=== PATIENT | female | born 1990 ===

== ENCOUNTER 2017-02-22 14:32 | Inpatient (IN) | payer BC, OTHER ==
[2017-02-22] MEDS ORDERED: METHOCARBAMOL 750 MG TABLET PO PRN (19:15)
[2017-02-22] MEDS ORDERED: IBUPROFEN 600 MG TABLET PO PRN (19:15)
[2017-02-22] MEDS ORDERED: MAGNESIUM HYDROXIDE 30 ML LIQUID UDC PO PRN (19:15)
[2017-02-22] MEDS ORDERED: ONDANSETRON 4 MG/2 ML VIAL IM PRN (19:15)
[2017-02-22] MEDS ORDERED: CLONIDINE HCL 0.1 MG TABLET PO PRN (19:15)
[2017-02-22] MEDS ORDERED: LORAZEPAM 2 MG/1 ML VIAL IM PRN (19:15)
[2017-02-22] MEDS ORDERED: LOPERAMIDE HCL 2 MG CAPSULE PO PRN ×2 (19:15)
[2017-02-22] MEDS ORDERED: ACETAMINOPHEN 325 MG TABLET PO PRN (19:15)
[2017-02-22] MEDS ORDERED: diphenhydrAMINE 50 MG CAPSULE PO PRN (19:15)
[2017-02-22] MEDS ORDERED: BUPRENORPHINE HCL 2 MG TAB.SUBL SL PRN (19:15)
[2017-02-22] MEDS ORDERED: LORAZEPAM 1 MG TABLET PO PRN ×2 (19:15)
[2017-02-22] MEDS ORDERED: MIRALAX 17 GM POWD.PACK PO PRN (19:15)
[2017-02-22] MEDS ORDERED: MAG HYDROX/AL HYDROX/SIMETH 30 ML LIQUID UDC PO PRN (19:15)
[2017-02-22] MEDS ORDERED: DICYCLOMINE HCL 20 MG TABLET PO PRN (19:15)
[2017-02-22] MEDS ORDERED: ONDANSETRON ODT 4 MG TAB.RAPDIS SL PRN (19:15)
[2017-02-23] MEDS ORDERED: TUBERCULIN,PURIF.PROT.DERIV. 5 TU/0.1 ML TEST ID ONE (09:00)
[2017-02-23] MEDS ORDERED: MULTIVITAMINS,THERAPEUTIC TABLET PO SCH (09:00)
== END 2017-02-22 19:15 | disposition left against medical advice (07) | DRG 894 ==
LOC: SRC 18:47
PROVIDERS: ADMIT Internal Medicine; ATTEND Internal Medicine
DX: F19.239 Other psychoactive substance dependence with withdrawal, unspecified (principal); Z75.3 Unavailability and inaccessibility of health-care facilities

== ENCOUNTER 2017-06-29 20:58 | Inpatient (IN) | payer BC, OTHER ==
[~2017-06-29] VITALS: Ht 160 cm; Wt 47.6 kg
[2017-06-29] MEDS ORDERED: ONDANSETRON ODT 4 MG TAB.RAPDIS SL PRN (23:15)
[2017-06-29] MEDS ORDERED: METHOCARBAMOL 750 MG TABLET PO PRN (23:15)
[2017-06-29] MEDS ORDERED: BUPRENORPHINE HCL 2 MG TAB.SUBL SL PRN (23:15)
[2017-06-29] MEDS ORDERED: LORAZEPAM 2 MG/1 ML VIAL IM PRN (23:15)
[2017-06-29] MEDS ORDERED: DICYCLOMINE HCL 20 MG TABLET PO PRN (23:15)
[2017-06-29] MEDS ORDERED: ACETAMINOPHEN 325 MG TABLET PO PRN (23:15)
[2017-06-29] MEDS ORDERED: IBUPROFEN 600 MG TABLET PO PRN (23:15)
[2017-06-29] MEDS ORDERED: LORAZEPAM 1 MG TABLET PO PRN ×2 (23:15)
[2017-06-29] MEDS ORDERED: LOPERAMIDE HCL 2 MG CAPSULE PO PRN ×2 (23:15)
[2017-06-29] MEDS ORDERED: MAG HYDROX/AL HYDROX/SIMETH 30 ML LIQUID UDC PO PRN (23:15)
[2017-06-29] MEDS ORDERED: ONDANSETRON 4 MG/2 ML VIAL IM PRN (23:15)
[2017-06-29] MEDS ORDERED: MIRALAX 17 GM POWD.PACK PO PRN (23:15)
--- NOTE | 2017-06-30 00:15 | NUR ---
INTAKE ASSESSMENT PT IS A/O X 3,EXTREMELY ANXIOUS AND NERVOUS,SAID THAT SHE HAS NOT SLEPT FOR DAYS.V/S :- B/P=140/78.T=97.6,P=100,R=18,O2 SAT=97%.GAIT IS STEADY.SPEECH IS COHERENT.PT IS ALLERGIC TO BUSPAR,REMERON AND EFFEXOR.NO C/O PAIN NOTED AT THIS TIME.UNIT RULES EXPLAINED.PT VERBALIZES UNDERSTANDING.WILL PROCEED TO [facility] FOR FURTHER ASSESSMENT.
[2017-06-30] MEDS ORDERED: LORAZEPAM 1 MG TABLET PO ONE (00:30)
[2017-06-30 00:55] LABS: BASOPHILS % (AUTO) 0.3 % (0.0-2.0); EOSINOPHILS # (AUTO) 0.1 K/uL (0.0-0.7); EOSINOPHILS % (AUTO) 0.5 % (0.0-7.0); HEMOGLOBIN 13.8 G/DL (12.0-16.0); LYMPHOCYTES # (AUTO) 4.6 K/UL (0.8-4.8); LYMPHOCYTES % (AUTO) 37.4 % (20.5-51.5); MEAN CORPUSCULAR HGB CONC 35 g/dL (32.0-37.0); MEAN CORPUSCULAR VOLUME 83.8 FL (81.0-99.0); MONOCYTES # (AUTO) 1.4 K/UL (0.1-1.30); MONOCYTES % (AUTO) 11.2 % (0.0-11.0); NEUTROPHILS # (AUTO) 6.2 K/UL (1.8-8.9); NEUTROPHILS % (AUTO) 50.6 % (38.5-71.5); PLATELET COUNT (AUTO) 438 K/UL (150-450); RED BLOOD CELL COUNT(AUTO) 4.77 MIL/UL (4.2-5.4); WHITE BLOOD COUNT (AUTO) 12.3 K/UL (4.0-11.2)
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
[2017-06-30 01:02] LABS: ALANINE AMINOTRANSFERASE 42 U/L (14-59); ALKALINE PHOSPHATASE 63 U/L (50-136); ASPARTATE AMINOTRANSFERASE 32 U/L (15-37); BILIRUBIN,TOTAL 0.7 mg/dL (0.2-1.0); CARBON DIOXIDE 34 mmol/L (21-32); CHLORIDE 98 mmol/L (98-107); GLUCOSE 98 mg/dL (74-106); MAGNESIUM 2.2 mg/dL (1.8-2.4); POTASSIUM 3.5 mmol/L (3.5-5.1); UREA NITROGEN, BLOOD 21 mg/dL (7-18)
[2017-06-30] MEDS ORDERED: LORAZEPAM 1 MG TABLET ONE (01:14)
[2017-06-30] MEDS ORDERED: diphenhydrAMINE 50 MG CAPSULE ONE (01:19)
[2017-06-30 01:24] LABS: ETHANOL < 3 MG/DL (0-0)
[2017-06-30] MEDS ORDERED: BUPRENORPHINE HCL 2 MG TAB.SUBL SL ONE (02:29)
[2017-06-30 02:38] LABS: *AMPHETAMINE, URINE POSITIVE (NEGATIVE); *BARBITURATE, URINE NEGATIVE (NEGATIVE); *CANNABINOID, URINE POSITIVE (NEGATIVE); *COCCAINE, URINE POSITIVE (NEGATIVE); *OPIATE, URINE POSITIVE (NEGATIVE); *PHENCYCLIDINE SCREEN,URINE NEGATIVE (NEGATIVE); *URINE HCG, QUAL NEGATIVE (NEGATIVE)
[2017-06-30] MEDS: diphenhydrAMINE 50 MG CAPSULE PO PRN (02:50)
--- NOTE | 2017-06-30 02:50 | NUR ---
PRN MEDS- PRN SUBUTEX 4 MG SL GIVEN FOR COWS SCORE OF 13 AND BENADRYL GIVEN ORDERED FOR C/O INSOMNIA.
--- NOTE | 2017-06-30 03:20 | NUR ---
SUBUTEX IS EFFECTIVE IN DECREASING THE COWS SCORE TO 8.WILL CONTINUE TO MONITOR.
--- NOTE | 2017-06-30 03:50 | NUR ---
BENADRYL IS NOT EFFECTIVE.PT IS UNABLE TO SLEEP.WILL CONTINUE TO MONITOR.
[2017-06-30 04:00] VITALS: BP 113/53
[2017-06-30] MEDS ORDERED: ALPR1TAB7 PO (04:37)
[2017-06-30] MEDS ORDERED: ASPI1TAB5 PO (04:37)
[2017-06-30] MEDS ORDERED: ASCO500C16 PO (04:37)
--- NOTE | 2017-06-30 07:06 | NUR ---
END OF SHIFT PT HAS NOT SLEPT ALL NIGHT,HAS BEEN PACING UP AND DOWN THE HALLWAY,WENT TO SMOKE X 2.FLUID INTAKE WAS 355 MLS,VOIDED X 1.PT IS ON PRN MEDS,NO TAPERS ORDERED YET.PRN SUBUTEX WAS GIVEN X 1 FOR COWS 13 AND WAS EFFECTIVE IN REDUCING THE SCORE TO 8.PRN BENADRYL WAS GIVEN TO HELP SLEEP BUT WAS NOT AT ALL HELPFUL.ALL SAFETY MEASURES IN PLACE WITH CALL YOST WITHIN REACH,WILL BE MONITORED FOR SAFETY.
[2017-06-30 08:00] VITALS: BP 91/61
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
[2017-06-30] MEDS ORDERED: TUBERCULIN,PURIF.PROT.DERIV. 5 TU/0.1 ML TEST ID ONE (09:00)
[2017-06-30] MEDS ORDERED: ASPIRIN/ACETAMINOPHEN/CAFFEINE TABLET PO PRN (09:30)
--- NOTE | 2017-06-30 10:10 | NUR ---
REPORT TO NEW RN ASSIGNMENT Nursing care transitioned to STONEY [place]. Report given to RN, including all information in START OF SHIFT NOTES as well as current and updated information. When patient returned from [facility] with POWER SAW OPERATOR Lucy reported to RN that patient stated to her that she came to [facility] because she had wanted to kill herself. When Lucy asked if she wanted to harm herself currently she denied suicidal ideations. While in the [facility], Pt. reported seeing persons such as drug dealers [facility], but Lucy stated no one was there. Upon return from [facility], RN asked Pt if she wanted to harm herself and she stated no, and that she was not suicidal, that she was speaking about her friend being suicidal, not herself. Pt states she wants to stay and not leave AMA. Pt assessed by Dr. Olivera and Dr. Cardona as well as AURELIANO Durbin. Pt has been placed on a 1:1. She denies suicidal ideation. She continues to have visual hallucinations of persons in her room. She took apart the hand soap dispenser and stated someone was in the bathroom drinking the soap. Hand soap dispenser removed from room. COWS and CIWA scores done with DON at 0942, COWS [address] Olivear stated now to STONEY Madrid that he has ordered an IM Ativan injection. All information endorsed to STONEY Madrid.
[2017-06-30] MEDS ORDERED: LORAZEPAM 2 MG/1 ML VIAL IM ONE ×3 (10:15→15:30)
[2017-06-30 10:27] VITALS: BP 91/61
--- NOTE | 2017-06-30 10:45 | NUR ---
NON-ADMINISTRATION OF TB SKIN TEST RN did not administer 0900 TB skin test due to patient agitation, see prior notes per this RN. Non-administration of TB skin test endorsed to STONEY Madrid.
--- NOTE | 2017-06-30 10:46 | NUR ---
ASSUMED CARE/ONE TIME DOSE ATIVAN IM Received report regarding patient from primary nurse, all pertinent information discussed. Patient currently in room with 1: 1 sitter, ciwa assessment completed patient noted with mild auditory and visual hallucinations, reporting she is seeing "shadows" and "hearing name being called out" patient provided with reality orientation, and calming reassurance patient noted with restlessness noted pacing back and forward in room, patient agitated and c/o increase in anxiety, current ciwa score of: 13. Patient was asked by Dr. jaffe with new orders for one time Ativan 2mgIM, medication administered as ordered, Well tolerated. Safety measures in place. fall and seizure precautions in place. will continue to monitor closely. Addendum: 06/30/17 at 1415 by JEOVANNY BOOKER LVN CLARIFICATION FROM NOTE ABOVE "patient was SEEN by Dr. jaffe with new orders for one time ativan 2mg IM"
--- NOTE | 2017-06-30 11:28 | NUR ---
ONE TIME ATIVAN REASSESSMENT Medication with some relief, noted with less anxiety and agitation, continues with mild auditory and visual hallucinations. non pharmacological interventions provided as needed will continue to monitor.
[2017-06-30 12:13] VITALS: BP 140/85
[2017-06-30] MEDS: LORAZEPAM 1 MG TABLET PO SCH ×3 (12:39→21:00)
--- NOTE | 2017-06-30 14:02 | NUR ---
ONE TIME ATIVAN IM Patient continues with increase in anxiety and agitation, and mild auditory and visual hallucinations. ciwa assessment completed current ciwa score of: 12. Patient provided with calming reassurance. patient noted seeing people in her room. Patient continues with 1: 1 sitter safety measures in place. will continue to monitor. Per Dr. jaffe patient to receive another one time dose of ativan 2mg IM as ordered, will continue to monitor.
--- NOTE | 2017-06-30 15:02 | NUR ---
ONE TIME ATIVAN REASSESSMENT Medication with no relief, noted continues with mild auditory and visual hallucinations, still agitated and anxious. BP: 144/88 HR: 110. non pharmacological interventions provided as needed will continue to monitor. MD Is aware.
[2017-06-30] MEDS ORDERED: diphenhydrAMINE 50 MG/1 ML VIAL IM ONE (15:30)
[2017-06-30] MEDS ORDERED: CLONIDINE HCL 0.1 MG TABLET PO ONE (15:30)
--- NOTE | 2017-06-30 15:37 | NUR ---
ONE TIME ATIVAN/BENADRYL AND PRN CLONIDINE/MD COMMUNICATION Patient with increase auditory and visual hallucinations, noted by staff looking under bed, patient states " im going to go with them" stating there is "people" "babies" in the room. patient provided with reality orientation and non pharmacological interventions, continues with 1:1 sitter at bedside. Per Dr. Olivera patient to receive a one time dose of Ativan 2mg IM, and Benadryl 50mg IM along with clonidine 0.1mg PO, all medications were administered, as ordered by MD. Will monitor closely. Patients psychiatrist, Dr. Cardona was also made aware as per alvaro mccarthy, with new orders for "Zyprexa 10mg PO Q12H PRN" doctor alvaro unable to input orders into dough, orders were read back and verified with dr. cardona, noted and carried out. patients safety measurers in place. call light kept with in iCurrent, all needs met and rendered, call light with in iCurrent, will continue to monitor. Addendum: 06/30/17 at 1719 by JEOVANNY BOOKER LVN BP: 102/62
[2017-06-30] MEDS ORDERED: OLANZAPINE 5 MG TABLET PO PRN (16:00)
--- NOTE | 2017-06-30 16:02 | NUR ---
Patient is 27 y/o female who present to [facility] for medically supervised withdrawal from ETOH and opioids unable to assess patient as patient not at room time of visit Tolerating current diet(regular ,allergy to onions/onion powder) po intake is improving eating 50-100% of meals Anthropometry:current weight 105lb,BMI 18.6, wnl physial assessment report suggest no overt malnutrition full nutrition assessment will be per policy scheduled Addendum: 07/01/17 at [address] Amended: Links added.
--- NOTE | 2017-06-30 16:37 | NUR ---
MEDICATION ADMINISTRATION Medications effective, patient in bed with eyes closed, respirations even and unlabored. bp: 105/62 heart rate: 95. patient continues with 1: 1 sitter as ordered, will continue under close observation.
--- NOTE | 2017-06-30 17:30 | NUR ---
1700 ATIVAN HELD Patients 1700 ativan 2mg PO held d/t patient in room with eyes closed, respirations even and unlabored, patient is responsive to verbal stimuli. unable to assess ciwa/cow score. MD is aware, safety measures in place. call light kept with in reach. will continue to monitor.
--- NOTE | 2017-06-30 17:37 | NUR ---
RE ASSESSMENT Patient re assessment completed medications effective, patient in room, in bed, with eyes closed and respiration even and unlabored. safety measures in place. continues under close observation.
[2017-06-30 18:03] VITALS: BP 105/62
--- NOTE | 2017-06-30 19:06 | NUR ---
END OF SHIFT Patient alert and orientedx4, Dx: eoth/BZO dependence. Patient Started on a 5 day Ativan taper as ordered, well tolerated, no ASE noted. During shift patient with multiple episodes of increase anxiety, agitation, and noted with auditory and visual hallucinations. Patient with 1: 1 sitter at bedside for safety precautions, during shift administered one time doses of Ativan 2mg IM at: 1028, 1402, and 1537. Patient was also administered one time dose of: Benadryl 50mg IM, and clonidine 0.1mg PO at 1537. 1300 assessment patient presented with: anxiety, agitation, irritable, auditory and visual hallucinations, heart rate of 103, difficulty sitting still with ciwa score of: 10 and cow score of: 5. Unable to assess 1700 cow/ciwa score, due to patient sleeping. While awake, Patient was encouraged adequate PO fluid intake as tolerated. Encouraged to attend group therapies/sessions to learn new coping skills to prevent relapse, during shift patient was assessed by write, denies any SI/HI. Patients safety measures in place. Call light kept with in reach. Endorsed to shift mgr nurse, all pertinent information discussed. Will continue to monitor.
--- NOTE | 2017-06-30 19:30 | NUR ---
START OF SHIFT NOTE Patient is a 27 year old female admitted on 06/29/17 for ETOH, Heroin, and Xanax detox. Patient has allergies to Buspar, Remeron, and Effexor. She has past history of seizure x 2 when withdrawing from Xanax. Patient is on seizure and fall precautions. She is a full code on a regular diet. Patient was started on a 5 day Ativan taper. During day shift patient with multiple episodes of increase anxiety, agitation, and noted with auditory and visual hallucinations. Numerous PRNs given with effectiveness. Patient with 1: 1 sitter at bedside for safety precautions. Last CIWA 10 COWS 5. Safety measures in place. Call light kept within reach. Report received from AM nurse
[2017-06-30 20:00] VITALS: BP 112/65
--- NOTE | 2017-06-30 20:00 | NUR ---
2000 COWS & CIWA deferred for sleep
[2017-06-30] MEDS: GABAPENTIN 300 MG CAPSULE PO SCH (21:00)
--- NOTE | 2017-06-30 22:04 | NUR ---
NON ADMINISTER MEDICATION 2100 gabapentin and lorazepam non administered due to sedation.
[2017-07-01] VITALS: BP 114/76
--- NOTE | 2017-07-01 | NUR ---
2000 OMAR & JACOBO deferred for sleep Addendum: 07/01/17 at 0257 by VANESSA SPENCER RN 0000 SCARLETT deferred for sleep
[2017-07-01 04:00] VITALS: BP 109/69
--- NOTE | 2017-07-01 04:00 | NUR ---
0400 COWS & CIWA deferred for sleep
--- NOTE | 2017-07-01 06:44 | NUR ---
End of shift Patient is a 27 year old female admitted on 06/29/17 for ETOH, Heroin, and Xanax detox. Patient has allergies to Buspar, Remeron, and Effexor. She has past history of seizure x 2 when withdrawing from Xanax. Patient is on seizure and fall precautions. She is a full code on a regular diet. Patient was started on a 5 day Ativan taper. During day shift patient with multiple episodes of increase anxiety, agitation, and noted with auditory and visual hallucinations. Numerous PRNs given with effectiveness. Patient with 1: 1 sitter at bedside for safety precautions. Vital signs at 2000 BP 112/65, P 86, R 14, SPO2 100% , T 98.4. Medications at 2100 non administered for sedation. VS at 0000 BP 114/76, P 81, R 16, (5% on RA, T 97.9. CIWA/COWS deferred for sleep. VS at 0400 BP 109/69, P 83, R 16, SPO2 98% on RA. COWS/CIWA deferred for sleep. Slept a total of 10 hours Intake 60 ml output void x 0. Safety measures in place. Call light kept within reach. Report given to AM nurse
--- NOTE | 2017-07-01 07:31 | NUR ---
BEGINNING OF SHIFT Patient endorsement report received from manager shift nurse, all pertinent information discussed. Patient admitted on 06/29/2017, with admitting Dx: opiate/bzo dependence, With substance use of: cocaine, methamphetamine, marijuana, and GHB. Patient with past medical history of: anxiety, depression, PTSD, seizure x2 d/t benzodiazepine withdrawal. Patient continues on 5 day Ativan taper as ordered, patient is scheduled to begin day 2 of taper will monitor closely. Per manager shift patient slept for 10 hours, Per manager shift patient received no PRNs, per manager shift unable to assess cow/ciwa patient sleeping throughout the night.Patient received in bed with eyes closed, respirations even and unlabored. safety measures in place. Fall and seizure precautions observed and in place. Patient was educated regarding plan of care for the day and medication regimen with good verbal understanding, will continue to monitor closely.
[2017-07-01 08:01] VITALS: BP 95/63
[2017-07-01] MEDS: GABAPENTIN 300 MG CAPSULE PO SCH ×3 (09:34→14:59)
[2017-07-01] MEDS: LORAZEPAM 1 MG TABLET PO SCH ×3 (09:35→21:08)
--- NOTE | 2017-07-01 10:43 | NUR ---
Therapist prompted client about group times. Client stated she is not attending groups today because she feels she needs more rest.
[2017-07-01 11:07] LABS: HEPATITIS B SURFACE AG Negative (Negative)
[2017-07-01 13:05] VITALS: BP 124/73
[2017-07-01] MEDS: CLONIDINE HCL 0.1 MG TABLET PO PRN (14:05)
--- NOTE | 2017-07-01 14:05 | NUR ---
PRN CLONIDINE Patient c/o increase in anxiety and feeling agitated, provided with non pharmacological interventions with no relief, administered clonidine 0.1mg PO as ordered bp: 124/73 heart rate: 108. will continue to monitor closely. safety measures in place.
[2017-07-01] MEDS ORDERED: LORAZEPAM 1 MG TABLET PO PRN ×2 (14:45)
[2017-07-01] MEDS ORDERED: BUPRENORPHINE HCL 2 MG TAB.SUBL SL PRN ×2 (14:45)
--- NOTE | 2017-07-01 15:05 | NUR ---
CLONIDINE REASSESSMENT Patient reports medication with some relief, continues to c/o anxiety and agitation. MD notified. patient encouraged to attend group therapies/sessions to learn new coping skills to prevent relapse. continues with 1: 1 sitter for safety precautions, will continue to monitor.
[2017-07-01] MEDS ORDERED: LORAZEPAM 1 MG TABLET PO ONE (16:15)
[2017-07-01] MEDS ORDERED: CLONIDINE HCL 0.2 MG TABLET PO ONE (16:15)
[2017-07-01 16:21] VITALS: BP 117/76
--- NOTE | 2017-07-01 16:23 | NUR ---
ONE TIME ATIVAN/CLONIDINE Per Dr. Olivera patient to receive one time dose of Ativan 2mg Po as ordered, and clonidine 0.2mg Po as ordered. patients bp: 117/76 heart rate: 110. Patient noted with restlessness and anxious. provided patient with non pharmacological interventions, safety measures in place. administered medications as ordered, will continue to monitor.
--- NOTE | 2017-07-01 17:23 | NUR ---
CLONIDINE/ATIVAN REASSESSMENT patient reports medication effective. patient reports feeling less anxious and less agitated. bp: 110/61 heart rate: 89. safety measures in place. will continue to monitor.
--- NOTE | 2017-07-01 19:06 | NUR ---
END OF SHIFT Patient alert and orientedx4, Dx: eoth/BZO dependence. Patient Started on a 5 day Ativan taper as ordered, well tolerated, no ASE noted, patient continues on day 2 of taper. During shift patient with multiple episodes of increase anxiety, agitation. Patient with 1: 1 sitter at bedside for safety precautions, during shift administered one time doses of Ativan 2mg PO and Clonidine 0.2mg PO As ordered, medications effective. 0900 assessment patient presented with: mild bone and joint aches, irritable, anxiety, mild agitation, mild heedfulness with ciwa score of: 7 and cow score of: 3. 1300 assessment patient presented with:heart rate of: 108 mild bone and joint aches, irritable, anxiety, mild agitation, mild head fullness with ciwa score of: 7 and cow score of: 3; 1700 assessment patient presented with: increase anxiety, agitation, mild head fullness and heart rate of: 110 with ciwa score of: 9 and cow score of: 5. Patient was encouraged adequate PO fluid intake as tolerated. Encouraged to attend group therapies/sessions to learn new coping skills to prevent relapse, denies any SI/HI. Patients safety measures in place. Call light kept with in reach. Endorsed to night time nanny nurse, all pertinent information discussed. Will continue to monitor.
--- NOTE | 2017-07-01 19:20 | NUR ---
CONTRABAND/CLONAZEPAM FOUND ENVIRONMENTAL DESIGNER Adriano found 2 round blue pills in the lining of client's bra, identified as clonazepam 1mg. Pills disposed of with charge nurse as per unit protocol.
--- NOTE | 2017-07-01 19:30 | NUR ---
START OF SHIFT Patient is a 27-year-old female admitted on 06/29/17 for opiate, ETOH, and benzo dependency with concurrent use of following substances: cocaine, meth, marijuana, and GHB. Patient has a past medical history of anxiety, depression, PTSD, and previous history of seizure x2 R/T Xanax withdrawal. Patient is FULL code, regular diet, and has allergies to Buspar, Remeron, and Effexor. Upon assessment, patient is alert and oriented x3, patient is on 1:1 for safety, currently denies A/V hallucinations. Patient reports feeling distressed due to the series of events leading up to detox. Patient is on fall and seizure precautions, safety measures in place, call light within reach. Will continue to monitor.
[2017-07-01 20:00] VITALS: BP 105/62
[2017-07-01] MEDS ORDERED: GABAPENTIN 300 MG CAPSULE PO SCH (21:00)
--- NOTE | 2017-07-01 21:13 | NUR ---
PT REFUSED GABAPENTIN Patient reports that gabapentin "doesn't do anything for me." Gabapentin was held and returned to the med room per unit protocol.
--- NOTE | 2017-07-02 | NUR ---
MIDNIGHT CIWA & COWS DEFERRED, VITAL SIGNS REFUSED Patient refused to be woken up for midnight vital signs. Patient's respirations are 18/min, even and unlabored. CIWA and COWS deferred due to patient being asleep, to be assessed while patient is awake per protocol. 1:[address], safety measures in place, call light within reach. Will continue to monitor.
--- NOTE | 2017-07-02 04:00 | NUR ---
0400 CIWA & COWS DEFERRED, VITALS REFUSED Patient refuses to be woken up, patient refuses vital signs at this time. Patient's respirations are 16/min, even and unlabored. Unable to score COWS and CIWA at this time due to patient sleeping, to be assessed while patient is awake, per protocol. Safety measures are in place, 1:[address] for safety, call light within reach, will continue to monitor.
--- NOTE | 2017-07-02 07:15 | NUR ---
END OF SHIFT Patient is a 27-year-old female admitted on 06/29/17 for opiate, ETOH, and benzo dependency with concurrent use of following substances: cocaine, meth, marijuana, and GHB. Patient has a past medical history of anxiety, depression, PTSD, and previous history of seizure x2 R/T Xanax withdrawal. Patient is FULL code, regular diet, and has allergies to Buspar, Remeron, and Effexor. Patient slept for 8 hrs, total intake 605mL, void x2, stool x0. Patient received no PRNs during shift. Last COWS score was 7, last CIWA score was 9. Patient is on fall and seizure precautions, 1:[address] for safety, safety measures in place, bed locked in low position, side rails up x2, call light within reach. Will endorse to day shift.
--- NOTE | 2017-07-02 07:55 | NUR ---
BEGINNING OF SHIFT Patient endorsement report received from assembler 1st shift nurse, all pertinent information discussed. Patient admitted on 06/29/2017, with admitting Dx: opiate/bzo dependence, With substance use of: cocaine, methamphetamine, marijuana, and GHB. Patient with past medical history of: anxiety, depression, PTSD, seizure x2 d/t benzodiazepine withdrawal. Patient continues on 5 day Ativan taper as ordered, patient is scheduled to begin day 3 of taper will monitor closely. Per assembler 1st shift patient slept for 8 hours, Per assembler 1st shift patient received no PRNs, last cow score of: 7 and last ciwa score of: 9.Patient received in bed with eyes closed, respirations even and unlabored. safety measures in place. Fall and seizure precautions observed and in place.Continues on 1: 1 sitter for safety precautions. Patient was educated regarding plan of care for the day and medication regimen with good verbal understanding, will continue to monitor closely.
[2017-07-02 08:06] VITALS: BP 112/71
[2017-07-02] MEDS: GABAPENTIN 300 MG CAPSULE PO SCH ×3 (08:41→21:15)
[2017-07-02] MEDS: CLONIDINE HCL 0.1 MG TABLET PO PRN (08:43)
--- NOTE | 2017-07-02 08:43 | NUR ---
PRN CLONIDINE Patient c/o feeling increase in anxiety, provided with non pharmacological interventions with no relief, administered clonidine 0.1mg PO as ordered, bp: 112/71 heart rate: 88. will continue to monitor.
[2017-07-02] MEDS: LORAZEPAM 1 MG TABLET PO SCH ×3 (08:45→17:18)
[2017-07-02 09:43] VITALS: BP 110/70
--- NOTE | 2017-07-02 09:43 | NUR ---
CLONIDINE REASSESSMENT Patient reports medication somewhat effective, still feels anxious at times, MD is aware. BP WNL, will continue to monitor. continues with 1: 1 sitter for safety precautions, will continue to monitor closely.
[2017-07-02] MEDS ORDERED: LORAZEPAM 1 MG TABLET PO ONE (10:45)
[2017-07-02 10:50] VITALS: BP 114/71
[2017-07-02 13:00] VITALS: BP 126/77
[2017-07-02] MEDS: CLONIDINE HCL 0.1 MG TABLET PO SCH ×2 (14:54→21:15)
[2017-07-02 16:30] VITALS: BP 122/71
--- NOTE | 2017-07-02 19:00 | NUR ---
END OF SHIFT Patient alert and orientedx4, Dx: eoth/BZO dependence. Patient Started on a 5 day Ativan taper as ordered, well tolerated, no ASE noted, patient continues on day 3 of taper. During shift patient with multiple episodes of increase anxiety, agitation. Patient with 1: 1 sitter at bedside for safety precautions, during shift administered one time doses of Ativan 1mg PO and PRN Clonidine 0.1mg PO As ordered, medications effective. 0900 assessment patient presented with: tremors that can be felt but not seen, barely sweating, moderate anxiety, mild agitation, heart rate of 88, c/o chills, difficulty sitting still, irritable, and anxiety with cow score of: 5 and ciwa score of: 8; 1300 assessment patient presented with: tremors that can be felt but not seen, barely sweating, moderate anxiety, mild agitation, heart rate of 80, c/o chills, difficulty sitting still, irritable, and anxiety with cow score of: 5 and ciwa score of: 8. 1700 assessment patient presented with:tremors that can be felt but not seen, barely sweating, moderate anxiety, mild agitation, heart rate of 89, c/o chills, difficulty sitting still, irritable, and anxiety with cow score of: 5 and ciwa score of: 8 Patient was encouraged adequate PO fluid intake as tolerated. Encouraged to attend group therapies/sessions to learn new coping skills to prevent relapse, denies any SI/HI. Patients safety measures in place. Call light kept with in reach. Endorsed to overnight caregiver nurse, all pertinent information discussed. Will continue to monitor.
--- NOTE | 2017-07-02 19:10 | NUR ---
START OF SHIFT Patient is a 27-year-old female admitted on 06/29/17 for opiate, ETOH, and benzo dependency with concurrent use of following substances: cocaine, meth, marijuana, and GHB. Patient has a past medical history of anxiety, depression, PTSD, and previous history of seizure x2 R/T Xanax withdrawal. Patient is FULL code, regular diet, and has allergies to Buspar, Remeron, and Effexor. Patient is currently on 5-day Ativan taper, tolerating well. Upon assessment, patient is alert and oriented x3, patient is on 1:1 for safety, currently denies A/V hallucinations. Patient reports feeling irritated due to being woken up during the day. Patient is on fall and seizure precautions, safety measures in place, call light within reach. Will continue to monitor.
[2017-07-02 20:00] VITALS: BP 106/72
[2017-07-02] MEDS ORDERED: LORAZEPAM 1 MG TABLET PO SCH (21:00)
--- NOTE | 2017-07-03 | NUR ---
MIDNIGHT VITALS REFUSED, COWS & CIWA DEFERRED Patient refuses to be woken up for midnight vitals. Respirations are 16/min, breathing is even and unlabored at this time. Unable to score COWS and CIWA at this time due to patient sleeping; to be assessed while patient is awake per protocol. Safety measures in place, 1:[address], call light within reach. Will continue to monitor.
--- NOTE | 2017-07-03 04:00 | NUR ---
4AM VITALS REFUSED, COWS & CIWA DEFERRED Patient refuses to be woken up for 0400 vitals. Respirations are 16/min, breathing is even and unlabored at this time. Unable to score COWS and CIWA at this time due to patient sleeping; to be assessed while patient is awake per protocol. Safety measures in place, 1:[address], call light within reach. Will continue to monitor.
--- NOTE | 2017-07-03 07:00 | NUR ---
END OF SHIFT Patient is a 27-year-old female admitted on 06/29/17 for opiate, ETOH, and benzo dependency with concurrent use of following substances: cocaine, meth, marijuana, and GHB. Patient has a past medical history of anxiety, depression, PTSD, and previous history of seizure x2 R/T Xanax withdrawal. Patient is FULL code, regular diet, and has allergies to Buspar, Remeron, and Effexor. Patient is currently on 5-day Ativan taper, tolerating well. Patient has slept 8 hrs, total intake 182 mL, void x1, stool x0. Patient received no PRNS during shift. Last COWS score was 3 and last CIWA score was 6. Patient is on fall and seizure precautions, safety measures in place, 1:[address] for safety, call light within reach. Will endorse to day shift.
[2017-07-03 08:00] VITALS: BP 102/64
--- NOTE | 2017-07-03 08:13 | NUR ---
Start of shift note; Received report from night nurse. Patient is a 27 year old female admitted on 06/29/17 for ETOH/Heroin/Benzo dependence. Patient was placed on Ativan taper, no adverse reactions noted. Patient noted to be allergic to buspar, Remeron and Effexor. Patient reported history of anxiety, depression, PTSD and Seizure d/t withdrawals. patient is currently on 1:1 supervision for safety. Patient's last CIWA is 6 and last CIWA is 3 at 0400. Patient is on fall and seizure precaution. Bed in lowest position, call light within reach. Will continue to monitor patient.
[2017-07-03] MEDS: CLONIDINE HCL 0.1 MG TABLET PO SCH ×3 (09:23→20:18)
[2017-07-03] MEDS: LORAZEPAM 1 MG TABLET PO SCH ×4 (09:23→20:19)
[2017-07-03] MEDS: GABAPENTIN 300 MG CAPSULE PO SCH ×2 (09:23→14:45)
[2017-07-03 12:00] VITALS: BP 115/72
[2017-07-03] MEDS: CLONIDINE HCL 0.1 MG TABLET PO PRN (12:44)
--- NOTE | 2017-07-03 12:44 | NUR ---
PRN Clonidine 0.1mg PO administered for anxiety, irritability. Sitter at bedside. Call light within reach. Primary nurse to reassess in an hour.
--- NOTE | 2017-07-03 13:44 | NUR ---
Re-assessment; Patient is currently resting with eyes closed, respirations even and unlabored. Patient is comfortable. PRN Clonidine is effective.
[2017-07-03 16:00] VITALS: BP 113/69
--- NOTE | 2017-07-03 18:33 | NUR ---
End of shift note; Patient is AOX4. Patient is a 27 year old female admitted on 06/29/17 for ETOH/Heroin/Benzo dependence. Patient was placed on Ativan taper, no adverse reactions noted. Patient noted to be allergic to buspar, Remeron and Effexor. Patient reported history of anxiety, depression, PTSD and Seizure d/t withdrawals. patient is currently on 1:1 supervision for safety. Patient's last CIWA is 3 and last CIWA is 4 at 1600. Patient remained compliant with treatment plan and medication regime. Medications were effective in reducing withdrawal symptoms. Met all needs.
[2017-07-03 20:00] VITALS: BP 111/62
--- NOTE | 2017-07-03 20:00 | NUR ---
Start of Shift Pt is a 27 year old female admitted for ETOH/Opiate/Benzo dependence, placed on Ativan taper. Pt reported use of wine 2 bottles/daily, heroin 2g, xanax 4mg, cocaine 2-5g, meth 4g, marijuana 3g and GHB 8 ounces. PMH: anxiety, depression, PTSD and seizure x2 due to benzo withdrawal. Pt reports allergies to buspirone, mirtazapine and venlafaxine, regular diet, fall/seizure precautions and full code. Upon assessment, pt reports feeling body aches, skin is flushed, pt states feeling anxious, denies n/v/d, denies SOB/chest pain, respirations even/unlabored, medications due. Pt is on 1:1 for safety, pt denies visual or auditory hallucinations. Safety measures in place, call light within reach, side rails up x2, bed locked and in low position. Will continue to monitor.
[2017-07-03] MEDS: diphenhydrAMINE 50 MG CAPSULE PO PRN (20:19)
[2017-07-03] MEDS: GABAPENTIN 400 MG CAPSULE PO SCH (20:19)
--- NOTE | 2017-07-03 20:19 | NUR ---
PRN Administration Pt requests aid to help her sleep. Benadryl 50mg PRN administered. Safety measures in place, will continue to monitor.
--- NOTE | 2017-07-03 21:19 | NUR ---
PRN Reassessment Upon reassessment, pt is sleeping, eyes closed with respirations even/unlabored. Sitter at bedside. safety measures in place, will continue to monitor.
--- NOTE | 2017-07-04 | NUR ---
OMAR/JACOBO deferred - pt sleeping, to assess while awake. Pt refused to be woken up for 0000 VS. Pt is sleeping, resp even/unlabored, sitter at bedside. Safety measures in place, will continue to monitor.
--- NOTE | 2017-07-04 04:00 | NUR ---
OMAR/JACOBO deferred - pt sleeping, to assess while awake. Pt refused to be woken up for 0400 VS. Pt is sleeping, resp even/unlabored, sitter at bedside. Safety measures in place, will continue to monitor.
--- NOTE | 2017-07-04 07:00 | NUR ---
End of Shift Pt is a 27 year old female admitted for ETOH/Opiate/Benzo dependence, placed on Ativan taper. Pt reported use of wine 2 bottles/daily, heroin 2g, xanax 4mg, cocaine 2-5g, meth 4g, marijuana 3g and GHB 8 ounces. PMH: anxiety, depression, PTSD and seizure x2 due to benzo withdrawal. Pt reports allergies to buspirone, mirtazapine and venlafaxine, regular diet, fall/seizure precautions and full code. During shift, pt reported feeling body aches, skin is flushed, pt states feeling anxious scheduled taper medications administered, effective in management of s/s of withdrawal as reported per pt, COWS 3 and CIWA 3. Benadryl 50mg PRN administered for sleep, effective. Pt slept for 10 hours, intake of 500 ml PO, voids x1 and stool x0. Pt continues on 1:1 for safety, pt denies visual or auditory hallucinations. Safety measures in place, call light within reach, side rails up x2, bed locked and in low position. Endorsed to day shift nurse.
[2017-07-04 08:00] VITALS: BP 112/65
--- NOTE | 2017-07-04 08:00 | NUR ---
Start of shift note; Received report from night nurse. Patient is a 27 year old female admitted on 06/29/17 for ETOH/Heroin/Benzo dependence. Patient was placed on Ativan taper, no adverse reactions noted. Patient noted to be allergic to buspar, Remeron and Effexor. Patient reported history of anxiety, depression, PTSD and Seizure d/t withdrawals. patient is currently on 1:1 supervision for safety. Patient's last CIWA is 3 and last CIWA is 3 at 0400. Patient slept for 10 hours. Patient is on fall and seizure precaution. Bed in lowest position, call light within reach. Will continue to monitor patient.
[2017-07-04] MEDS ORDERED: LORAZEPAM 1 MG TABLET PO SCH (09:00)
[2017-07-04] MEDS: GABAPENTIN 400 MG CAPSULE PO SCH ×2 (09:26→14:55)
[2017-07-04] MEDS: CLONIDINE HCL 0.1 MG TABLET PO SCH ×2 (09:27→14:55)
[2017-07-04] MEDS: LORAZEPAM 1 MG TABLET PO SCH ×3 (09:27→20:57)
[2017-07-04 12:00] VITALS: BP 118/68
[2017-07-04 16:00] VITALS: BP 126/71
[2017-07-04] MEDS ORDERED: LORAZEPAM 1 MG TABLET PO ONE (17:30)
--- NOTE | 2017-07-04 17:56 | NUR ---
MD order; ordered one time dose of Ativan 4mg PO for anxiety and CIWA of 8 manifested by agitation, anxiety. sweats and irritability. Will continue to monitor patient.
[2017-07-04 20:00] VITALS: BP 110/63
--- NOTE | 2017-07-04 20:00 | NUR ---
Start of Shift Pt is a 27 year old female admitted for ETOH/Opiate/Benzo dependence, placed on Ativan taper. Pt reported use of wine 2 bottles/daily, heroin 2g, xanax 4mg, cocaine 2-5g, meth 4g, marijuana 3g and GHB 8 ounces. PMH: anxiety, depression, PTSD and seizure x2 due to benzo withdrawal. Pt reports allergies to buspirone, mirtazapine and venlafaxine, regular diet, fall/seizure precautions and full code. Upon assessment, pt reports feeling anxious, skin is flushed,, denies n/v/d, denies SOB/chest pain, respirations even/unlabored. Pt is on 1:1 for safety, denies visual or auditory hallucinations. Safety measures in place, call light within reach, side rails up x2, bed locked and in low position. Will continue to monitor.
[2017-07-04] MEDS: diphenhydrAMINE 50 MG CAPSULE PO PRN (20:58)
--- NOTE | 2017-07-04 20:58 | NUR ---
PRN Administration Pt requests aid to help her sleep. Benadryl 50mg PRN administered. Safety measures in place, will continue to monitor.
[2017-07-04] MEDS ORDERED: GABAPENTIN 300 MG CAPSULE PO SCH (21:00)
[2017-07-04] MEDS ORDERED: CLONIDINE HCL 0.2 MG TABLET PO SCH (21:00)
--- NOTE | 2017-07-04 21:58 | NUR ---
PRN Reassessment Upon reassessment, pt is sleeping, eyes closed with respirations even/unlabored. Sitter at bedside. safety measures in place, will continue to monitor.
--- NOTE | 2017-07-05 07:00 | NUR ---
End of Shift Pt is a 27 year old female admitted for ETOH/Opiate/Benzo dependence, placed on Ativan taper. Pt reported use of wine 2 bottles/daily, heroin 2g, xanax 4mg, cocaine 2-5g, meth 4g, marijuana 3g and GHB 8 ounces. PMH: anxiety, depression, PTSD and seizure x2 due to benzo withdrawal. Pt reports allergies to buspirone, mirtazapine and venlafaxine, regular diet, fall/seizure precautions and full code. During shift, pt reported feeling anxious, skin is flushed Scheduled taper medications administered, effective in management o f withdrawal as reported per pt, COWS 2 and CIWA 3. Benadryl 50mg PRN administered for sleep, effective. Pt slept for 8 hours, intake of 750 ml PO, voids x1 and stool x0. Pt continues on 1:1 for safety, denies visual or auditory hallucinations. Safety measures in place, call light within reach, side rails up x2, bed locked and in low position. Endorsed to day shift nurse.
--- NOTE | 2017-07-05 07:27 | NUR ---
Start of shift note; Received report from night nurse. Patient is a 27 year old female admitted on 06/29/17 for ETOH/Heroin/Benzo dependence. Patient was placed on Ativan taper, no adverse reactions noted. Patient noted to be allergic to buspar, Remeron and Effexor. Patient reported history of anxiety, depression, PTSD and Seizure d/t withdrawals. patient is currently on 1:1 supervision for safety. Patient's last CIWA is 3 and last CIWA is 3 at 0400. Patient slept for 8 hours. Patient is on fall and seizure precaution. Bed in lowest position, call light within reach. Will continue to monitor patient.
[2017-07-05 08:00] VITALS: BP 106/80
[2017-07-05] MEDS ORDERED: CLONIDINE HCL 0.1 MG TABLET PO SCH ×2 (09:00)
[2017-07-05] MEDS ORDERED: GABAPENTIN 300 MG CAPSULE PO SCH (09:00)
[2017-07-05] MEDS ORDERED: GABAPENTIN 400 MG CAPSULE PO SCH (09:00)
[2017-07-05] MEDS ORDERED: LORAZEPAM 1 MG TABLET PO SCH ×2 (09:00)
[2017-07-05] MEDS ORDERED: LORAZEPAM 1 MG TABLET PO ONE ×3 (11:15→21:00)
--- NOTE | 2017-07-05 11:21 | NUR ---
MD order; MD on unit. Patient was seen and assessed by MD. MD ordered Ativan 1mg PO one time order mainly for anxiety manifested by increase HR 103, BP 130/94. Order given as per MD order. Will continue to monitor patient.
[2017-07-05 12:00] VITALS: BP 125/67
--- NOTE | 2017-07-05 12:21 | NUR ---
Re-assessment; Patient appears calm and comfortable. Patient's current HR is 88 and BP of 103/72. Medication noted to be effective.
[2017-07-05] MEDS: GABAPENTIN 300 MG CAPSULE PO SCH ×2 (15:07→20:48)
--- NOTE | 2017-07-05 15:31 | NUR ---
MD order; MD on unit. Patient was seen and assessed and counseled by MD. MD ordered Ativan 2mg PO one time order mainly for anxiety manifested by increase HR 105, BP 128/94. Order given as per MD order. Will continue to monitor patient.
[2017-07-05 16:00] VITALS: BP 128/68
--- NOTE | 2017-07-05 17:29 | NUR ---
Re-assessment; Patient appears calm and comfortable. Patient's current HR is 92 and BP of 113/68. Medication noted to be effective. Addendum: 07/05/17 at 1730 by CAROLINA LAUREANO LVN Re-assessment for Ativan dose given at 1531.
[2017-07-05] MEDS ORDERED: diphenhydrAMINE 50 MG/1 ML VIAL IM ONE (18:00)
[2017-07-05] MEDS ORDERED: LORAZEPAM 2 MG/1 ML VIAL IM ONE (18:00)
--- NOTE | 2017-07-05 18:29 | NUR ---
MD orders; Telephone order received from . ordered Ativan injection 2mg/1ml IM for increase in anxiety and severe agitation with current HR of 105 and 138/98 and also Theron ordered 50mg/1ml IM. Will closely monitor patient for effectiveness of medication.
--- NOTE | 2017-07-05 18:32 | NUR ---
End of shift note; Patient is AOX4. Patient is a 27 year old female admitted on 06/29/17 for ETOH/Heroin/Benzo dependence. Patient was placed on Ativan taper, no adverse reactions noted. Patient noted to be allergic to BuSpar, Remeron and Effexor. Patient reported history of anxiety, depression, PTSD and Seizure d/t withdrawals. Patient remained compliant with treatment plan and medication regime. Medications were effective in reducing withdrawal symptoms. Patient had episodes of increased anxiety and agitation throughout the day,redirected patient as needed. All safety measures secured. Met all needs.
--- NOTE | 2017-07-05 19:12 | NUR ---
Nurse note; Re-assessed patient. Patient is currently resting with eyes closed, respirations even and unlabored, SPo2 of 98%on room air, HR of 82. Medications noted to be effective. Endorsed to night nurse.
[2017-07-05 20:00] VITALS: BP 120/68
--- NOTE | 2017-07-05 20:00 | NUR ---
1999 Patient received sleeping soundly in side position of comfort. Aroused for V/S and COWS, CIWA assessments. Patient's color is pink and her skin is warm, very slightly moist and intact. Patient responds to nurse's greeting and introduction with brief eye contact and " I had an emotional day today and I want to get back to sleep". Patient denies any pain or other discomforts presently and she voices no requests for anything at this time. Patient states that she has been eating her regular diet meal trays as best she can and taking water and other fluids ad immanuel with no gastric issues so far. Patient did not feel up to attending [facility] tonight. Vital signs are: 97.8-99-14 120/68, COWS 2, CIWA 1. Patient was admitted on 06/29/17 for: Alcohol, Heroin, Xanax, Cocaine, Meth, MJ and GHB withdrawal and she has completed a 5-Day Ativan medication taper. Fall/seizure precautions continue. Bed is locked and in lowest position, bed rails are up X 2 and call light within patient's easy reach.
[2017-07-05] MEDS: diphenhydrAMINE 50 MG CAPSULE PO PRN (20:49)
--- NOTE | 2017-07-06 | NUR ---
Patient does not wish to be awakened at this time, for V/S, COWS, CIWA assessments to be done. Assessments deferred.
--- NOTE | 2017-07-06 04:00 | NUR ---
Patient continues to sleep comfortably, soundly with eyes closed and respirations deep, even, unlabored at 12. V/S, COWS, CIWA deferred, as patient does not wish to be awakened at this time.
--- NOTE | 2017-07-06 06:30 | NUR ---
0630 Patient slept a total of 9 hours and she had no voids and no stools. Total intake was 1,500 ml p.o. No prn medications given this shift. V/SS afebrile, last COWS 2, CIWA 1 at 1999. Patient is presently resting comfortably in stable condition, with eyes closed and respirations quiet, even at 12.
--- NOTE | 2017-07-06 07:10 | NUR ---
Start of Shift Endorsement received from nightshift nurse. Pt is a 27 y/o female admitted for Opiates, Benzos and Meth dependence. Pt has been placed on a 5 day Ativan taper. Pt is tolerating the taper and mildly withdrawing AEB COWS 2, CIWA 1 at 1999. Pt reports sleeping 9 hours. Pt did not receive any PRN medications, pt received a one time dose of Ativan per Dr. Olivera. VS WNL. Full Code. PT is alert and oriented x4. Pt is in STABLE condition at this time. Remains compliant with medication and diet regimen. All needs have been met, All safety measures in place per hospital policy. Bed in lowest position, side rails up x2, call-light within reach. Will continue to monitor
[2017-07-06 08:00] VITALS: BP 122/65
[2017-07-06] MEDS ORDERED: LORAZEPAM 1 MG TABLET PO SCH (09:00)
[2017-07-06] MEDS: GABAPENTIN 300 MG CAPSULE PO SCH ×2 (09:18→15:00)
[2017-07-06 12:00] VITALS: BP 130/72
--- NOTE | 2017-07-06 14:20 | NUR ---
Pt reports wanting to leave AMA despite explaining to her multiple times the benefits of completing the detox process. MD has been notified. Addendum: 07/06/17 at 1521 by CHIDI DESAI RN PT has been educated on the risks of leaving ama.
[2017-07-06] MEDS ORDERED: diphenhydrAMINE 50 MG/1 ML VIAL IM ONE (14:45)
[2017-07-06] MEDS ORDERED: LORAZEPAM 2 MG/1 ML VIAL IM ONE (14:45)
[2017-07-06] MEDS ORDERED: DIPH50CA37 PO (14:57)
[2017-07-06] MEDS ORDERED: METH-406 PO (14:57)
[2017-07-06] MEDS ORDERED: CLON0.1T14 PO (14:57)
[2017-07-06] MEDS ORDERED: GABA-534 PO (14:57)
--- NOTE | 2017-07-06 16:51 | NUR ---
AMA Note Pt left AMA, Pt refused to comply with treatment plan. Pt educated about the risks and consequences of leaving AMA, pt verbalized understanding but was adamant about leaving. Multiple staff members including the doctor, patient advocates and nurses attempted to reason with the pt without any success. VS WNL. Skin intact, pt denies any suicidal or homicidal ideations. Pt psychiatrist and MD were notified and aware. PT was given a list of community resources, AMA forms explained and signed. All belongings returned to PT. PT left facility AMA on 07/06/17 2901.
== END 2017-07-06 16:51 | disposition left against medical advice (07) | DRG 894 ==
LOC: SRC 22:42
PROVIDERS: ADMIT Internal Medicine; ATTEND Internal Medicine
PROC: HZ2ZZZZ Detoxification Services for Substance Abuse Treatment (ICD-10-PCS; principal; 2017-06-29)
PROC: HZ31ZZZ Individual Counseling for Substance Abuse Treatment, Behavioral (ICD-10-PCS; 2017-07-03)
DX: F10.231 Alcohol dependence with withdrawal delirium (principal); E87.3 Alkalosis; F13.231 Sedative, hypnotic or anxiolytic dependence with withdrawal delirium; F11.23 Opioid dependence with withdrawal; F15.221 Other stimulant dependence with intoxication delirium; F31.9 Bipolar disorder, unspecified; E86.0 Dehydration; F41.9 Anxiety disorder, unspecified; F14.10 Cocaine abuse, uncomplicated; F12.90 Cannabis use, unspecified, uncomplicated; F17.210 Nicotine dependence, cigarettes, uncomplicated; Y90.9 Presence of alcohol in blood, level not specified; D72.823 Leukemoid reaction; Z81.1 Family history of alcohol abuse and dependence; Z82.49 Family history of ischemic heart disease and other diseases of the circulatory system; Z91.89 Other specified personal risk factors, not elsewhere classified; Z20.5 Contact with and (suspected) exposure to viral hepatitis; R45.1 Restlessness and agitation; R79.89 Other specified abnormal findings of blood chemistry
CPT/HCPCS: 36415; 80307; 80324; 80346; 80349; 80353; 80361; 83735; 84703; 85025; 86580; 86592; 86705; 86803; 87340; 87806; A4663; G0480; J1200; J2060; Q0163